=== PATIENT | male | born 1935 | race Caucasian/White ===

== ENCOUNTER 2019-05-08 13:44 | Inpatient (IN) ==
[2019-05-08 14:22] LABS: Basophils % 0.1 %; Eosinophils % 0.4 %; Hematocrit 41.9 % (37.5-50.1); Hemoglobin 12.7 g/dL (12.9-16.9); Immature Granulocytes % 0.6 % (0-4); Lymphocytes # 0.5 K/mcL (0.6-4.6); Lymphocytes % 5.4 %; Mean Corpuscular HGB Conc 30.3 g/dL (31.6-35.5); Mean Corpuscular Hemoglobin 29.6 pg (28.0-33.3); Mean Corpuscular Volume 97.7 fL (83.0-100.0); Mean Platelet Volume 8.4 fL (9.4-12.4); Monocytes # 0.5 K/mcL (0.0-1.3); Monocytes % 5.3 %; Neutrophils # 8.2 K/mcL (1.6-8.9); Platelet Count 252 K/mcL (140-400); Red Blood Count 4.29 M/mcL (4.19-5.50); Red Cell Distribution Width 16.2 % (11.5-14.5); Segmented Neutrophils % 88.2 %; White Blood Count 9.4 K/mcL (4.3-11.1)
[2019-05-08] MEDS ORDERED: Isovue-370 500 ML BOTTLE IVP ONE (14:28)
[2019-05-08 14:32] LABS: Prothrombin Time 10.9 Seconds (9.4-12.1)
[2019-05-08 14:35] LABS: Activated Partial Thrombo Time 31.8 Seconds (26.0-36.0)
[2019-05-08 14:48] LABS: Troponin I < 0.03 ng/mL (< 0.04)
[2019-05-08 14:53] LABS: ABG Base Excess 10 mEq/L (-2 to 3); ABG HCO3 38 mEq/L (21-27); ABG Oxygen Saturation 92 % (95-98); ABG PCO2 68 mmHg (35-45); ABG PH 7.35 pH Units (7.32-7.45); ABG PO2 68 mmHg (85-104); ABG TCO2 40 mEq/L (20-26)
[2019-05-08 15:01] LABS: Alanine Aminotransferase < 3 Units/L (7-52); Albumin 3.8 g/dL (3.5-5.7); Albumin/Globulin Ratio 1.7 (1.1-2.2); Alkaline Phosphatase 58 Units/L (34-104); Aspartate Amino Transferase 8 Units/L (13-39); BUN/Creatinine Ratio 25 (6-26); Bilirubin,Direct 0.1 mg/dL (0.0-0.2); Bilirubin,Indirect 0.4 mg/dL (0.0-1.0); Bilirubin,Total 0.5 mg/dL (0.3-1.0); Blood Urea Nitrogen 24 mg/dL (8-23); Calcium 8.6 mg/dL (8.6-10.3); Carbon Dioxide 33 mEq/L (23-29); Chloride 99 mEq/L (98-107); Globulin 2.3 g/dL (2.4-3.5); Glucose 221 mg/dL (70-105); Osmolality,Calculated 295 (280-300); Potassium 4.4 mEq/L (3.5-5.1); Sodium 137 mEq/L (136-145); Total Protein 6.1 g/dL (6.4-8.9); eGFR For African Americans > 60 (> 60); eGFR For Non-African Americans > 60 (> 60)
[2019-05-08] MEDS ORDERED: cefTRIAXone 1,000 MG in Water for inj. (sterile) 10 ML IVP ONE (15:54)
[2019-05-08] MEDS ORDERED: Furosemide 40 MG/4 ML VIAL IVP ONE (15:54)
[2019-05-08 16:27] LABS: Bilirubin,Urine Negative (Negative); Blood,Urine Negative (Negative); Clarity,Urine Clear (Clear); Color,Urine Yellow (Yellow); Glucose,Urine (UA) 250 mg/dL (Normal); Ketones,Urine Negative (Negative); Leukocyte Esterase,Urine Negative (Negative); Nitrite,Urine Negative (Negative); Protein,Urine Negative (Neg-Trace); Specific Gravity,Urine > 1.030 (1.010-1.025); Urobilinogen,Urine Normal (Normal)
[2019-05-08] MEDS ORDERED: Naloxone 0.4 MG/ML INJ IVP PRN (16:57)
[2019-05-08] MEDS ORDERED: Ondansetron ODT 4 MG TAB.RAPDIS SL PRN (17:02)
[2019-05-08] MEDS ORDERED: Acetaminophen 325 MG TABLET PO PRN (17:12)
[2019-05-08 17:33] LABS: Magnesium 2.1 mg/dL (1.6-2.6)
[2019-05-08] MEDS ORDERED: Albuterol 2.5 MG/3 ML NEBULIZER IH PRN (17:48)
[2019-05-08] MEDS ORDERED: Azithromycin 500 MG in 0.9 % Sodium Chloride 250 ML IVPB SCH (18:00)
[2019-05-08] MEDS ORDERED: Ondansetron ODT 4 MG TAB.RAPDIS PO PRN (18:13)
[2019-05-08] MEDS: *HR* Heparin 5,000 UNIT/ML VIAL SQ SCH (18:56)
[2019-05-08] MEDS: predniSONE 20 MG TABLET PO SCH (18:56)
[2019-05-08] MEDS: Ampicillin/Sulbactam 3,000 MG in 0.9 % Sodium Chloride Mini Bag 100 ML IVPB SCH (18:57)
[2019-05-08] MEDS: Ipratropium/Albuterol Neb 3 ML IH SCH (19:40)
[2019-05-08] MEDS ORDERED: Furosemide 40 MG/4 ML VIAL IVP SCH (21:00)
[2019-05-08] MEDS: Carbidopa/Levodopa 25/100 TABLET PO SCH (21:22)
[2019-05-09] MEDS: Ampicillin/Sulbactam 3,000 MG in 0.9 % Sodium Chloride Mini Bag 100 ML IVPB SCH ×4 (00:03→17:34)
[2019-05-09] MEDS: Ipratropium/Albuterol Neb 3 ML IH SCH ×6 (01:01→20:17)
[2019-05-09] MEDS: *HR* Heparin 5,000 UNIT/ML VIAL SQ SCH ×2 (06:39→17:34)
[2019-05-09 07:23] LABS: Hematocrit 38.6 % (37.5-50.1); Hemoglobin 12.1 g/dL (12.9-16.9); Mean Corpuscular HGB Conc 31.3 g/dL (31.6-35.5); Mean Corpuscular Volume 95.8 fL (83.0-100.0); Mean Platelet Volume 8.8 fL (9.4-12.4); Platelet Count 277 K/mcL (140-400); Red Blood Count 4.03 M/mcL (4.19-5.50); Red Cell Distribution Width 16.1 % (11.5-14.5); White Blood Count 8.2 K/mcL (4.3-11.1)
[2019-05-09 07:44] LABS: BUN/Creatinine Ratio 23 (6-26); Blood Urea Nitrogen 23 mg/dL (8-23); Calcium 8.5 mg/dL (8.6-10.3); Carbon Dioxide 39 mEq/L (23-29); Chloride 96 mEq/L (98-107); Glucose 166 mg/dL (70-105); Osmolality,Calculated 297 (280-300); Potassium 4.3 mEq/L (3.5-5.1); Sodium 140 mEq/L (136-145); eGFR For African Americans > 60 (> 60); eGFR For Non-African Americans > 60 (> 60)
[2019-05-09] MEDS ORDERED: cefTRIAXone 1,000 MG in Water for inj. (sterile) 10 ML IVP SCH (09:00)
[2019-05-09] MEDS ORDERED: (Fluticasone/Umeclidin/Vilanter [Trelegy Ellipta 100- IH SCH (09:00)
[2019-05-09] MEDS: Bumetanide 1 MG TABLET PO SCH (09:19)
[2019-05-09] MEDS: Carbidopa/Levodopa 25/100 TABLET PO SCH ×3 (09:20→21:56)
[2019-05-09] MEDS: predniSONE 20 MG TABLET PO SCH (09:20)
[2019-05-09] MEDS: Spironolactone 25 MG TABLET PO SCH (09:21)
[2019-05-09 15:59] LABS: Adenovirus Not Detected (Not Detect); Bordetella Pertussis Not Detected (Not Detect); Chlamydophila pneumoniae Not Detected (Not Detect); Coronavirus 229E Not Detected (Not Detect); Coronavirus HKU1 Not Detected (Not Detect); Coronavirus NL63 Not Detected (Not Detect); Coronavirus OC43 Not Detected (Not Detect); Human Metapneumovirus Not Detected (Not Detect); Human Rhinovirus/Enterovirus Not Detected (Not Detect); Influenza A Subtype 2009 H1 Not Detected (Not Detect); Influenza B Not Detected (Not Detect); Mycoplasma pneumoniae Not Detected (Not Detect); Parainfluenza Virus 1 Not Detected (Not Detect); Parainfluenza Virus 2 Not Detected (Not Detect); Parainfluenza Virus 3 Not Detected (Not Detect); Parainfluenza Virus 4 Not Detected (Not Detect); Respiratory Syncytial Virus Not Detected (Not Detect)
[2019-05-09] MEDS: Budesonide/Formoterol 160/4.5 1 PUFF INH IH SCH (20:17)
[2019-05-10] MEDS: Ipratropium/Albuterol Neb 3 ML IH SCH ×6 (00:07→20:22)
[2019-05-10] MEDS: Ampicillin/Sulbactam 3,000 MG in 0.9 % Sodium Chloride Mini Bag 100 ML IVPB SCH ×2 (00:34→05:46)
[2019-05-10] MEDS: *HR* Heparin 5,000 UNIT/ML VIAL SQ SCH ×2 (05:45→17:25)
[2019-05-10] MEDS: Budesonide/Formoterol 160/4.5 1 PUFF INH IH SCH ×2 (07:45→20:22)
[2019-05-10] MEDS: Bumetanide 1 MG TABLET PO SCH (07:53)
[2019-05-10] MEDS: Spironolactone 25 MG TABLET PO SCH (07:53)
[2019-05-10] MEDS: predniSONE 20 MG TABLET PO SCH (07:54)
[2019-05-10] MEDS: Carbidopa/Levodopa 25/100 TABLET PO SCH ×3 (07:54→21:25)
[2019-05-10 08:09] LABS: Hematocrit 36.9 % (37.5-50.1); Hemoglobin 11.4 g/dL (12.9-16.9); Mean Corpuscular HGB Conc 30.9 g/dL (31.6-35.5); Mean Corpuscular Hemoglobin 29.8 pg (28.0-33.3); Mean Corpuscular Volume 96.6 fL (83.0-100.0); Mean Platelet Volume 8.7 fL (9.4-12.4); Platelet Count 256 K/mcL (140-400); Red Blood Count 3.82 M/mcL (4.19-5.50); Red Cell Distribution Width 16.1 % (11.5-14.5); White Blood Count 8.3 K/mcL (4.3-11.1)
[2019-05-10] MEDS ORDERED: Furosemide 40 MG/4 ML VIAL IVP ONE ×2 (08:22→19:00)
[2019-05-10 08:30] LABS: BUN/Creatinine Ratio 24 (6-26); Blood Urea Nitrogen 27 mg/dL (8-23); Calcium 8.2 mg/dL (8.6-10.3); Carbon Dioxide 37 mEq/L (23-29); Chloride 100 mEq/L (98-107); Glucose 160 mg/dL (70-105); Osmolality,Calculated 305 (280-300); Potassium 4.2 mEq/L (3.5-5.1); Sodium 143 mEq/L (136-145); eGFR For African Americans > 60 (> 60); eGFR For Non-African Americans > 60 (> 60)
[2019-05-11] MEDS: Ipratropium/Albuterol Neb 3 ML IH SCH ×4 (00:06→11:53)
[2019-05-11] MEDS: *HR* Heparin 5,000 UNIT/ML VIAL SQ SCH (04:58)
[2019-05-11 05:08] LABS: Hematocrit 38.3 % (37.5-50.1); Hemoglobin 11.7 g/dL (12.9-16.9); Mean Corpuscular HGB Conc 30.5 g/dL (31.6-35.5); Mean Corpuscular Hemoglobin 29.7 pg (28.0-33.3); Mean Corpuscular Volume 97.2 fL (83.0-100.0); Mean Platelet Volume 8.5 fL (9.4-12.4); Platelet Count 266 K/mcL (140-400); Red Blood Count 3.94 M/mcL (4.19-5.50); Red Cell Distribution Width 16.1 % (11.5-14.5); White Blood Count 7.8 K/mcL (4.3-11.1)
[2019-05-11 05:33] LABS: BUN/Creatinine Ratio 26 (6-26); Blood Urea Nitrogen 28 mg/dL (8-23); Calcium 8.5 mg/dL (8.6-10.3); Carbon Dioxide 42 mEq/L (23-29); Chloride 96 mEq/L (98-107); Glucose 119 mg/dL (70-105); Osmolality,Calculated 303 (280-300); Potassium 4.3 mEq/L (3.5-5.1); Sodium 143 mEq/L (136-145); eGFR For African Americans > 60 (> 60); eGFR For Non-African Americans > 60 (> 60)
[2019-05-11] MEDS: Carbidopa/Levodopa 25/100 TABLET PO SCH (07:20)
[2019-05-11] MEDS: Spironolactone 25 MG TABLET PO SCH (07:20)
[2019-05-11] MEDS: predniSONE 20 MG TABLET PO SCH (07:20)
[2019-05-11] MEDS: Budesonide/Formoterol 160/4.5 1 PUFF INH IH SCH (07:29)
[2019-05-11] MEDS: Bumetanide 1 MG TABLET PO SCH (07:57)
[2019-05-11] MEDS ORDERED: Furosemide 40 MG TABLET PO SCH (08:15)
[2019-05-11 08:24] LABS: ABG Base Excess 14 mEq/L (-2 to 3); ABG HCO3 44 mEq/L (21-27); ABG Oxygen Saturation 91 % (95-98); ABG PCO2 78 mmHg (35-45); ABG PH 7.36 pH Units (7.32-7.45); ABG PO2 67 mmHg (85-104); ABG TCO2 46 mEq/L (20-26)
[2019-05-11 10:17] VITALS: BP 141/72
== END 2019-05-11 14:00 | DRG 177 ==
LOC: EMEROOARM 13:44 → 3ANU 13:44 → SUATTDRO 16:57 → 3ANU 17:58
PROVIDERS: ADMIT Family Medicine; ATTEND Family Medicine

== ENCOUNTER 2019-06-09 22:12 | Inpatient (IN) ==
[2019-06-09] MEDS ORDERED: 0.9 % Sodium Chloride 1,000 ML IVC ONE (22:39)
[2019-06-09 23:14] LABS: Basophils % 0.2 %; Eosinophils # 0.1 K/mcL (0.0-0.6); Eosinophils % 0.9 %; Hematocrit 35.7 % (37.5-50.1); Hemoglobin 10.9 g/dL (12.9-16.9); Immature Granulocytes % 0.4 % (0-4); Lymphocytes # 0.8 K/mcL (0.6-4.6); Lymphocytes % 13.9 %; Mean Corpuscular HGB Conc 30.5 g/dL (31.6-35.5); Mean Corpuscular Volume 98.3 fL (83.0-100.0); Mean Platelet Volume 8.4 fL (9.4-12.4); Monocytes # 0.5 K/mcL (0.0-1.3); Monocytes % 8.6 %; Neutrophils # 4.2 K/mcL (1.6-8.9); Platelet Count 231 K/mcL (140-400); Red Blood Count 3.63 M/mcL (4.19-5.50); Red Cell Distribution Width 15.6 % (11.5-14.5); White Blood Count 5.6 K/mcL (4.3-11.1)
[2019-06-09 23:23] LABS: Calcium 8.3 mg/dL (8.6-10.3); Potassium 4.3 mEq/L (3.5-5.1)
[2019-06-09] MEDS ORDERED: Ipratropium/Albuterol Neb 3 ML IH ONE (23:35)
[2019-06-10] MEDS ORDERED: predniSONE 20 MG TABLET PO ONE (00:33)
[2019-06-10] MEDS ORDERED: 0.9 % Sodium Chloride 500 ML IVC ONE (00:34)
[2019-06-10 00:58] LABS: Bilirubin,Urine Negative (Negative); Blood,Urine Negative (Negative); Clarity,Urine Clear (Clear); Color,Urine Yellow (Yellow); Glucose,Urine (UA) Normal (Normal); Ketones,Urine Negative (Negative); Leukocyte Esterase,Urine Negative (Negative); Nitrite,Urine Negative (Negative); PH,Urine 6.5 pH Units (5.0-8.0); Protein,Urine Negative (Neg-Trace); Specific Gravity,Urine 1.012 (1.010-1.025); Urobilinogen,Urine Normal (Normal)
[2019-06-10] MEDS ORDERED: Naloxone 0.4 MG/ML INJ IVP PRN (03:09)
[2019-06-10] MEDS ORDERED: Albuterol 2.5 MG/3 ML NEBULIZER IH PRN (03:13)
[2019-06-10] MEDS: Ipratropium/Albuterol Neb 3 ML IH SCH ×5 (03:40→21:54)
[2019-06-10 05:15] LABS: Hematocrit 35.3 % (37.5-50.1); Mean Corpuscular HGB Conc 31.2 g/dL (31.6-35.5); Mean Corpuscular Hemoglobin 30.8 pg (28.0-33.3); Mean Corpuscular Volume 98.9 fL (83.0-100.0); Mean Platelet Volume 8.5 fL (9.4-12.4); Platelet Count 222 K/mcL (140-400); Red Blood Count 3.57 M/mcL (4.19-5.50); Red Cell Distribution Width 15.6 % (11.5-14.5)
[2019-06-10 05:38] LABS: Calcium 8.4 mg/dL (8.6-10.3); Phosphorous 3.5 mg/dL (2.7-4.5); Potassium 4.8 mEq/L (3.5-5.1)
[2019-06-10] MEDS: predniSONE 20 MG TABLET PO SCH (08:19)
[2019-06-10] MEDS: Azithromycin 500 MG in 0.9 % Sodium Chloride 250 ML IVPB SCH (11:27)
[2019-06-10] MEDS: Carbidopa/Levodopa 25/100 TABLET PO SCH ×2 (14:32→20:04)
[2019-06-10 14:40] LABS: ABG Base Excess 9 mEq/L (-2 to 3); ABG HCO3 37 mEq/L (21-27); ABG Oxygen Saturation 98 % (95-98); ABG PCO2 67 mmHg (35-45); ABG PH 7.36 pH Units (7.32-7.45); ABG PO2 111 mmHg (85-104); ABG TCO2 40 mEq/L (20-26)
[2019-06-10] MEDS ORDERED: Furosemide 40 MG TABLET PO SCH (17:00)
[2019-06-10] MEDS ORDERED: Furosemide 20 MG/2 ML VIAL IVP SCH (17:00)
[2019-06-10] MEDS ORDERED: Melatonin 3 MG TABLET PO PRN (17:49)
[2019-06-10] MEDS ORDERED: NON-FORMULARY MEDICATION 1 EACH EACH (Fluticasone/Umeclidin/Vilanter [Trelegy Ellipta 100- IH SCH (18:00)
[2019-06-10] MEDS: Budesonide/Formoterol 160/4.5 1 PUFF INH IH SCH (21:54)
[2019-06-11 03:27] LABS: Basophils % 0.1 %; Eosinophils % 0.6 %; Hematocrit 36.3 % (37.5-50.1); Immature Granulocytes % 0.6 % (0-4); Lymphocytes # 0.9 K/mcL (0.6-4.6); Mean Corpuscular HGB Conc 30.3 g/dL (31.6-35.5); Mean Corpuscular Hemoglobin 30.4 pg (28.0-33.3); Mean Corpuscular Volume 100.3 fL (83.0-100.0); Mean Platelet Volume 8.5 fL (9.4-12.4); Monocytes # 0.5 K/mcL (0.0-1.3); Monocytes % 7.2 %; Neutrophils # 5.7 K/mcL (1.6-8.9); Platelet Count 243 K/mcL (140-400); Red Blood Count 3.62 M/mcL (4.19-5.50); Red Cell Distribution Width 15.5 % (11.5-14.5); Segmented Neutrophils % 79.5 %; White Blood Count 7.2 K/mcL (4.3-11.1)
[2019-06-11 03:47] LABS: BUN/Creatinine Ratio 28 (6-26); Blood Urea Nitrogen 36 mg/dL (8-23); Calcium 8.8 mg/dL (8.6-10.3); Carbon Dioxide 39 mEq/L (23-29); Chloride 98 mEq/L (98-107); Glucose 116 mg/dL (70-105); Osmolality,Calculated 299 (280-300); Potassium 4.6 mEq/L (3.5-5.1); Sodium 140 mEq/L (136-145); eGFR For African Americans > 60 (> 60); eGFR For Non-African Americans 54 (> 60)
[2019-06-11] MEDS: Ipratropium/Albuterol Neb 3 ML IH SCH ×4 (03:57→21:09)
[2019-06-11] MEDS: Furosemide 20 MG/2 ML VIAL IVP SCH ×2 (07:51→18:24)
[2019-06-11] MEDS: Carbidopa/Levodopa 25/100 TABLET PO SCH ×3 (07:51→21:05)
[2019-06-11] MEDS: predniSONE 20 MG TABLET PO SCH (07:51)
[2019-06-11] MEDS ORDERED: lisinopriL 5 MG TABLET PO SCH (09:00)
[2019-06-11] MEDS: Budesonide/Formoterol 160/4.5 1 PUFF INH IH SCH ×2 (10:16→21:09)
[2019-06-11] MEDS: Tiotropium 18 MCG inhalation IH SCH (10:17)
[2019-06-11] MEDS: Azithromycin 500 MG in 0.9 % Sodium Chloride 250 ML IVPB SCH (10:33)
[2019-06-11] MEDS ORDERED: 0.9 % Sodium Chloride 250 ML IVC ONE ×2 (18:48→20:24)
[2019-06-12] MEDS: Ipratropium/Albuterol Neb 3 ML IH SCH ×2 (03:29→09:44)
[2019-06-12 05:45] LABS: Basophils % 0.1 %; Eosinophils # 0.1 K/mcL (0.0-0.6); Eosinophils % 1.1 %; Hematocrit 36.3 % (37.5-50.1); Immature Granulocytes % 0.7 % (0-4); Lymphocytes # 1.6 K/mcL (0.6-4.6); Lymphocytes % 20.9 %; Mean Corpuscular HGB Conc 30.3 g/dL (31.6-35.5); Mean Corpuscular Hemoglobin 30.4 pg (28.0-33.3); Mean Corpuscular Volume 100.3 fL (83.0-100.0); Mean Platelet Volume 8.5 fL (9.4-12.4); Monocytes # 0.5 K/mcL (0.0-1.3); Monocytes % 6.9 %; Neutrophils # 5.3 K/mcL (1.6-8.9); Platelet Count 233 K/mcL (140-400); Red Blood Count 3.62 M/mcL (4.19-5.50); Red Cell Distribution Width 15.9 % (11.5-14.5); Segmented Neutrophils % 70.3 %; White Blood Count 7.5 K/mcL (4.3-11.1)
[2019-06-12 06:07] LABS: Calcium 8.7 mg/dL (8.6-10.3); Potassium 4.6 mEq/L (3.5-5.1)
[2019-06-12] MEDS: predniSONE 20 MG TABLET PO SCH (08:53)
[2019-06-12] MEDS: Carbidopa/Levodopa 25/100 TABLET PO SCH (08:54)
[2019-06-12] MEDS: Budesonide/Formoterol 160/4.5 1 PUFF INH IH SCH (09:46)
[2019-06-12] MEDS: Tiotropium 18 MCG inhalation IH SCH (09:53)
[2019-06-12 10:15] VITALS: BP 105/36
[2019-06-12] MEDS ORDERED: Azithromycin 250 MG TABLET PO ONE (12:00)
[2019-06-12] MEDS: Azithromycin 500 MG in 0.9 % Sodium Chloride 250 ML IVPB SCH (12:25)
== END 2019-06-12 15:13 | disposition home or self-care (01) | DRG 190 ==
LOC: 3ANU 22:12 → EMEROOARM 22:12 → SUATTDRO 06-10 01:20 → 3ANU 06-10 02:18
PROVIDERS: ADMIT Family Medicine; ATTEND Internal Medicine

== ENCOUNTER 2019-06-27 07:03 | Inpatient (IN) ==
[2019-06-27] MEDS ORDERED: 0.9 % Sodium Chloride 1,000 ML IVC ONE (07:17)
[2019-06-27 07:49] LABS: Basophils % 0.3 %; Eosinophils # 0.1 K/mcL (0.0-0.6); Eosinophils % 1.4 %; Hematocrit 37.9 % (37.5-50.1); Hemoglobin 11.3 g/dL (12.9-16.9); Immature Granulocytes % 0.4 % (0-4); Lymphocytes # 0.9 K/mcL (0.6-4.6); Lymphocytes % 11.1 %; Mean Corpuscular HGB Conc 29.8 g/dL (31.6-35.5); Mean Corpuscular Hemoglobin 30.2 pg (28.0-33.3); Mean Corpuscular Volume 101.3 fL (83.0-100.0); Mean Platelet Volume 8.7 fL (9.4-12.4); Monocytes # 0.5 K/mcL (0.0-1.3); Monocytes % 7.1 %; Neutrophils # 6.1 K/mcL (1.6-8.9); Platelet Count 316 K/mcL (140-400); Red Blood Count 3.74 M/mcL (4.19-5.50); Red Cell Distribution Width 16.3 % (11.5-14.5); Segmented Neutrophils % 79.7 %; White Blood Count 7.6 K/mcL (4.3-11.1)
[2019-06-27 07:55] LABS: Prothrombin Time 11.3 Seconds (9.4-12.1)
[2019-06-27 07:57] LABS: Activated Partial Thrombo Time 34.4 Seconds (26.0-36.0)
[2019-06-27] MEDS ORDERED: Cefepime HCl 1,000 MG in 0.9 % Sodium Chloride Mini Bag 100 ML IVPB STA (08:21)
[2019-06-27] MEDS ORDERED: Azithromycin 500 MG in 0.9 % Sodium Chloride 250 ML IVPB ONE (08:21)
[2019-06-27 08:41] LABS: Bilirubin,Urine Negative (Negative); Blood,Urine Large (Negative); Clarity,Urine Turbid (Clear); Color,Urine Red (Yellow); Glucose,Urine (UA) Normal (Normal); Ketones,Urine Negative (Negative); Leukocyte Esterase,Urine Small (Negative); Nitrite,Urine Negative (Negative); Protein,Urine 100 mg/dL (Neg-Trace); Specific Gravity,Urine 1.015 (1.010-1.025); Urobilinogen,Urine Normal (Normal)
[2019-06-27 08:43] LABS: Bacteria,Urine None Seen per hpf (None-Few); RBC,Urine 50-100 per hpf (0-3); Squamous Epithelial Cell,Urine Many per lpf (None-Few)
[2019-06-27 08:51] LABS: Amphetamine Screen,Urine Negative ng/mL (Cutoff=1000); Barbiturate Screen,Urine Negative ng/mL (Cutoff=200); Benzodiazepines Screen,Urine Negative ng/mL (Cutoff=200); Cannabinoid Screen,Urine Negative ng/mL (Cutoff = 50); Cocaine Screen,Urine Negative ng/mL (Cutoff= 300); Opiate Screen,Urine Negative ng/mL (Cutoff=300); Phencyclidine Screen,Urine Negative ng/mL (Cutoff=25)
[2019-06-27 08:54] LABS: Alanine Aminotransferase < 3 Units/L (7-52); Albumin 3.8 g/dL (3.5-5.7); Albumin/Globulin Ratio 1.5 (1.1-2.2); Alkaline Phosphatase 52 Units/L (34-104); Aspartate Amino Transferase 10 Units/L (13-39); BUN/Creatinine Ratio 24 (6-26); Bilirubin,Direct 0.1 mg/dL (0.0-0.2); Bilirubin,Indirect 0.2 mg/dL (0.0-1.0); Bilirubin,Total 0.3 mg/dL (0.3-1.0); Blood Urea Nitrogen 40 mg/dL (8-23); C-Reactive Protein 40 mg/L (Less than 10); Calcium 8.9 mg/dL (8.6-10.3); Carbon Dioxide 36 mEq/L (23-29); Chloride 98 mEq/L (98-107); Ethanol < 10 mg/dL (Less than 10); Ferritin 53 ng/mL (20-250); Globulin 2.6 g/dL (2.4-3.5); Glucose 98 mg/dL (70-105); Magnesium 1.8 mg/dL (1.6-2.6); Osmolality,Calculated 302 (280-300); Potassium 4.8 mEq/L (3.5-5.1); Sodium 141 mEq/L (136-145); Thyroid Stimulating Hormone 2.003 mcIU/mL (0.340-5.600); Total Protein 6.4 g/dL (6.4-8.9); Troponin I < 0.03 ng/mL (< 0.04); eGFR For African Americans 48 (> 60); eGFR For Non-African Americans 39 (> 60)
[2019-06-27] MEDS ORDERED: Naloxone 0.4 MG/ML INJ IVP PRN (11:42)
[2019-06-27] MEDS ORDERED: 0.9 % Sodium Chloride 1,000 ML IVC SCH (12:15)
[2019-06-27] MEDS ORDERED: Ketoconazole 2% CRM 15 GM TUBE TP PRN (20:55)
[2019-06-27] MEDS ORDERED: Ondansetron ODT 4 MG TAB.RAPDIS PO PRN (20:55)
[2019-06-27] MEDS: Melatonin 3 MG TABLET PO SCH (21:34)
[2019-06-27] MEDS: Carbidopa/Levodopa 25/100 TABLET PO SCH (21:35)
[2019-06-27] MEDS ORDERED: Ipratropium/Albuterol Neb 3 ML IH ONE (23:38)
[2019-06-27] MEDS: Budesonide/Formoterol 80/4.5 1 PUFF INH IH SCH (23:39)
[2019-06-27] MEDS ORDERED: Ipratropium/Albuterol Neb 3 ML IH PRN (23:44)
[2019-06-28 00:36] LABS: Basophils % 0.1 %; Eosinophils # 0.2 K/mcL (0.0-0.6); Hematocrit 35.3 % (37.5-50.1); Hemoglobin 10.4 g/dL (12.9-16.9); Immature Granulocytes % 0.3 % (0-4); Lymphocytes # 0.8 K/mcL (0.6-4.6); Lymphocytes % 9.8 %; Mean Corpuscular HGB Conc 29.5 g/dL (31.6-35.5); Mean Corpuscular Hemoglobin 30.2 pg (28.0-33.3); Mean Corpuscular Volume 102.6 fL (83.0-100.0); Mean Platelet Volume 8.4 fL (9.4-12.4); Monocytes # 0.6 K/mcL (0.0-1.3); Monocytes % 7.4 %; Neutrophils # 6.3 K/mcL (1.6-8.9); Platelet Count 261 K/mcL (140-400); Red Blood Count 3.44 M/mcL (4.19-5.50); Red Cell Distribution Width 16.3 % (11.5-14.5); Segmented Neutrophils % 80.4 %; White Blood Count 7.9 K/mcL (4.3-11.1)
[2019-06-28 00:50] LABS: VBG HCO3 37 mEq/L (21-27); VBG PCO2 82 mmHg (41-51); VBG PH 7.26 pH Units (7.32-7.42); VBG PO2 49 mmHg (25-50)
[2019-06-28 01:00] LABS: BUN/Creatinine Ratio 22 (6-26); Blood Urea Nitrogen 26 mg/dL (8-23); Calcium 8.7 mg/dL (8.6-10.3); Carbon Dioxide 35 mEq/L (23-29); Chloride 104 mEq/L (98-107); Glucose 101 mg/dL (70-105); Osmolality,Calculated 299 (280-300); Potassium 4.9 mEq/L (3.5-5.1); Sodium 142 mEq/L (136-145); eGFR For African Americans > 60 (> 60); eGFR For Non-African Americans > 60 (> 60)
[2019-06-28] MEDS ORDERED: *HR* LORazepam 2 MG/ML VIAL IVP ONE ×4 (02:21→23:24)
[2019-06-28] MEDS ORDERED: Aminoglycoside Consult 1 EACH MC ONE (08:27)
[2019-06-28] MEDS ORDERED: 0.9 % Sodium Chloride 500 ML IVC ONE (08:47)
[2019-06-28] MEDS ORDERED: 0.9 % Sodium Chloride 1,000 ML ONE (08:49)
[2019-06-28] MEDS ORDERED: levoFLOXacin 500 MG TABLET PO SCH (09:00)
[2019-06-28] MEDS: Budesonide/Formoterol 80/4.5 1 PUFF INH IH SCH ×2 (09:42→20:16)
[2019-06-28] MEDS: Tiotropium 18 MCG inhalation IH SCH (09:43)
[2019-06-28 09:51] LABS: ABG Base Excess 7 mEq/L (-2 to 3); ABG HCO3 36 mEq/L (21-27); ABG Oxygen Saturation 94 % (95-98); ABG PCO2 76 mmHg (35-45); ABG PH 7.28 pH Units (7.32-7.45); ABG PO2 83 mmHg (85-104); ABG TCO2 38 mEq/L (20-26); Blood Gas Modality NIV
[2019-06-28] MEDS ORDERED: Budesonide/Formoterol 80/4.5 1 PUFF INH IH SCH (10:00)
[2019-06-28] MEDS: MethylPREDNISolone 40 MG/ML VIAL IVP SCH ×3 (10:14→23:19)
[2019-06-28] MEDS: Piperacillin/Tazobactam 3.375 GM in 0.9 % Sodium Chloride Mini Bag 100 ML IVPB SCH ×3 (10:14→23:19)
[2019-06-28] MEDS ORDERED: 0.9 % Sodium Chloride 1,000 ML IVC ONE (10:27)
[2019-06-28] MEDS: Furosemide 40 MG TABLET PO SCH (11:34)
[2019-06-28] MEDS: Ipratropium/Albuterol Neb 3 ML IH SCH ×5 (11:34→23:50)
[2019-06-28] MEDS: WHEAT DEXTRIN PO SCH (11:35)
[2019-06-28] MEDS: polyethylene glycoL 3350 17 GM POWD.PACK PO SCH (11:35)
[2019-06-28] MEDS: Carbidopa/Levodopa 25/100 TABLET PO SCH ×3 (11:35→20:34)
[2019-06-28] MEDS: lisinopriL 5 MG TABLET PO SCH (11:36)
[2019-06-28 11:47] LABS: Adenovirus Not Detected (Not Detect); Bordetella Pertussis Not Detected (Not Detect); Chlamydophila pneumoniae Not Detected (Not Detect); Coronavirus 229E Not Detected (Not Detect); Coronavirus HKU1 Not Detected (Not Detect); Coronavirus NL63 Not Detected (Not Detect); Coronavirus OC43 Not Detected (Not Detect); Human Metapneumovirus Not Detected (Not Detect); Human Rhinovirus/Enterovirus Not Detected (Not Detect); Influenza A Subtype 2009 H1 Not Detected (Not Detect); Influenza B Not Detected (Not Detect); Mycoplasma pneumoniae Not Detected (Not Detect); Parainfluenza Virus 1 Not Detected (Not Detect); Parainfluenza Virus 2 Not Detected (Not Detect); Parainfluenza Virus 3 Not Detected (Not Detect); Parainfluenza Virus 4 Not Detected (Not Detect); Respiratory Syncytial Virus Not Detected (Not Detect)
[2019-06-28 15:13] LABS: ABG Base Excess 7 mEq/L (-2 to 3); ABG HCO3 36 mEq/L (21-27); ABG Oxygen Saturation 97 % (95-98); ABG PCO2 75 mmHg (35-45); ABG PH 7.29 pH Units (7.32-7.45); ABG PO2 101 mmHg (85-104); ABG TCO2 38 mEq/L (20-26); Blood Gas Pressure Support 16 cm H2O
[2019-06-28] MEDS: *HR* Heparin 5,000 UNIT/ML VIAL SQ SCH (16:44)
[2019-06-28] MEDS ORDERED: *HR* LORazepam 1 MG TABLET PO ONE (17:53)
[2019-06-28 20:16] LABS: ABG Base Excess 8 mEq/L (-2 to 3); ABG HCO3 35 mEq/L (21-27); ABG Oxygen Saturation 87 % (95-98); ABG PCO2 63 mmHg (35-45); ABG PH 7.35 pH Units (7.32-7.45); ABG PO2 57 mmHg (85-104); ABG TCO2 37 mEq/L (20-26); Blood Gas Modality BiLevel; Blood Gas Pressure Support 11 cm H2O
[2019-06-28] MEDS: Melatonin 3 MG TABLET PO SCH (20:34)
[2019-06-28] MEDS ORDERED: *HR* LORazepam 2 MG/ML VIAL IM STA (23:45)
[2019-06-29 01:05] LABS: Basophils % 0.1 %; Hematocrit 36.9 % (37.5-50.1); Hemoglobin 11.1 g/dL (12.9-16.9); Immature Granulocytes % 0.4 % (0-4); Lymphocytes # 0.3 K/mcL (0.6-4.6); Lymphocytes % 3.1 %; Mean Corpuscular HGB Conc 30.1 g/dL (31.6-35.5); Mean Corpuscular Hemoglobin 30.7 pg (28.0-33.3); Mean Corpuscular Volume 101.9 fL (83.0-100.0); Mean Platelet Volume 8.6 fL (9.4-12.4); Monocytes % 0.4 %; Neutrophils # 9.1 K/mcL (1.6-8.9); Platelet Count 289 K/mcL (140-400); Red Blood Count 3.62 M/mcL (4.19-5.50); Red Cell Distribution Width 15.9 % (11.5-14.5); White Blood Count 9.5 K/mcL (4.3-11.1)
[2019-06-29 01:25] LABS: BUN/Creatinine Ratio 20 (6-26); Blood Urea Nitrogen 20 mg/dL (8-23); Carbon Dioxide 35 mEq/L (23-29); Chloride 104 mEq/L (98-107); Glucose 150 mg/dL (70-105); Magnesium 1.7 mg/dL (1.6-2.6); Osmolality,Calculated 303 (280-300); Sodium 144 mEq/L (136-145); eGFR For African Americans > 60 (> 60); eGFR For Non-African Americans > 60 (> 60)
[2019-06-29] MEDS: Ipratropium/Albuterol Neb 3 ML IH SCH ×5 (04:09→21:36)
[2019-06-29 04:32] LABS: ABG Base Excess 9 mEq/L (-2 to 3); ABG HCO3 37 mEq/L (21-27); ABG Oxygen Saturation 91 % (95-98); ABG PCO2 69 mmHg (35-45); ABG PH 7.34 pH Units (7.32-7.45); ABG PO2 66 mmHg (85-104); ABG TCO2 39 mEq/L (20-26); Blood Gas Pressure Support 11 cm H2O
[2019-06-29] MEDS: *HR* Heparin 5,000 UNIT/ML VIAL SQ SCH ×2 (05:18→16:31)
[2019-06-29] MEDS: Tiotropium 18 MCG inhalation IH SCH (07:50)
[2019-06-29] MEDS: Carbidopa/Levodopa 25/100 TABLET PO SCH ×3 (08:29→21:03)
[2019-06-29] MEDS: MethylPREDNISolone 40 MG/ML VIAL IVP SCH ×2 (08:30→16:30)
[2019-06-29] MEDS: lisinopriL 5 MG TABLET PO SCH (08:30)
[2019-06-29] MEDS: Piperacillin/Tazobactam 3.375 GM in 0.9 % Sodium Chloride Mini Bag 100 ML IVPB SCH ×2 (08:30→16:31)
[2019-06-29] MEDS: polyethylene glycoL 3350 17 GM POWD.PACK PO SCH (08:57)
[2019-06-29] MEDS: WHEAT DEXTRIN PO SCH (08:57)
[2019-06-29] MEDS: Budesonide/Formoterol 80/4.5 1 PUFF INH IH SCH ×2 (10:38→21:29)
[2019-06-29] MEDS ORDERED: Morphine Sulfate Oral CONC 10 MG/0.5 ML ORAL.SYG SL PRN (14:56)
[2019-06-29] MEDS ORDERED: Haloperidol Oral Conc 10 MG/5 ML UDC PO PRN (14:56)
[2019-06-29] MEDS: Melatonin 3 MG TABLET PO SCH (21:03)
[2019-06-30] MEDS: Piperacillin/Tazobactam 3.375 GM in 0.9 % Sodium Chloride Mini Bag 100 ML IVPB SCH ×3 (01:44→15:00)
[2019-06-30] MEDS: MethylPREDNISolone 40 MG/ML VIAL IVP SCH ×2 (01:44→07:55)
[2019-06-30] MEDS ORDERED: Haloperidol Lactate 5 MG/ML VIAL IVP ONE (02:18)
[2019-06-30] MEDS: *HR* Heparin 5,000 UNIT/ML VIAL SQ SCH ×2 (04:19→17:22)
[2019-06-30] MEDS: lisinopriL 5 MG TABLET PO SCH (07:53)
[2019-06-30] MEDS: Carbidopa/Levodopa 25/100 TABLET PO SCH ×3 (07:54→19:55)
[2019-06-30] MEDS: Psyllium 1 PACKET POWD.PACK PO SCH (07:55)
[2019-06-30] MEDS: polyethylene glycoL 3350 17 GM POWD.PACK PO SCH (07:55)
[2019-06-30] MEDS: Tiotropium 18 MCG inhalation IH SCH (08:06)
[2019-06-30] MEDS: Budesonide/Formoterol 80/4.5 1 PUFF INH IH SCH ×2 (08:07→20:02)
[2019-06-30] MEDS: Melatonin 3 MG TABLET PO SCH (19:54)
[2019-07-01] MEDS: Piperacillin/Tazobactam 3.375 GM in 0.9 % Sodium Chloride Mini Bag 100 ML IVPB SCH ×2 (00:14→08:11)
[2019-07-01] MEDS: *HR* Heparin 5,000 UNIT/ML VIAL SQ SCH ×2 (04:57→15:49)
[2019-07-01] MEDS: Psyllium 1 PACKET POWD.PACK PO SCH (08:12)
[2019-07-01] MEDS: lisinopriL 5 MG TABLET PO SCH (08:12)
[2019-07-01] MEDS: polyethylene glycoL 3350 17 GM POWD.PACK PO SCH (08:12)
[2019-07-01] MEDS: Carbidopa/Levodopa 25/100 TABLET PO SCH ×3 (08:12→20:19)
[2019-07-01] MEDS: predniSONE 20 MG TABLET PO SCH (08:12)
[2019-07-01] MEDS: Tiotropium 18 MCG inhalation IH SCH (11:56)
[2019-07-01] MEDS: Budesonide/Formoterol 80/4.5 1 PUFF INH IH SCH ×2 (12:03→20:15)
[2019-07-01 15:28] LABS: Hematocrit 34.7 % (37.5-50.1); Hemoglobin 10.6 g/dL (12.9-16.9); Immature Granulocytes % 0.5 % (0-4); Lymphocytes # 0.2 K/mcL (0.6-4.6); Lymphocytes % 3.1 %; Mean Corpuscular HGB Conc 30.5 g/dL (31.6-35.5); Mean Corpuscular Hemoglobin 30.3 pg (28.0-33.3); Mean Corpuscular Volume 99.1 fL (83.0-100.0); Mean Platelet Volume 8.3 fL (9.4-12.4); Monocytes # 0.1 K/mcL (0.0-1.3); Monocytes % 1.9 %; Platelet Count 262 K/mcL (140-400); Red Cell Distribution Width 16.2 % (11.5-14.5); Segmented Neutrophils % 94.5 %; White Blood Count 7.4 K/mcL (4.3-11.1)
[2019-07-01 15:48] LABS: BUN/Creatinine Ratio 25 (6-26); Blood Urea Nitrogen 27 mg/dL (8-23); Calcium 8.5 mg/dL (8.6-10.3); Carbon Dioxide 35 mEq/L (23-29); Chloride 98 mEq/L (98-107); Glucose 250 mg/dL (70-105); Osmolality,Calculated 300 (280-300); Potassium 4.7 mEq/L (3.5-5.1); Sodium 138 mEq/L (136-145); eGFR For African Americans > 60 (> 60); eGFR For Non-African Americans > 60 (> 60)
[2019-07-01] MEDS: Furosemide 40 MG TABLET PO SCH (15:49)
[2019-07-01] MEDS: Melatonin 3 MG TABLET PO SCH (20:19)
[2019-07-02] MEDS: *HR* Heparin 5,000 UNIT/ML VIAL SQ SCH ×2 (06:39→17:42)
[2019-07-02] MEDS: Tiotropium 18 MCG inhalation IH SCH (07:33)
[2019-07-02] MEDS: Budesonide/Formoterol 80/4.5 1 PUFF INH IH SCH ×2 (07:35→19:58)
[2019-07-02] MEDS: predniSONE 20 MG TABLET PO SCH (10:28)
[2019-07-02] MEDS: Carbidopa/Levodopa 25/100 TABLET PO SCH ×3 (10:29→20:40)
[2019-07-02] MEDS: lisinopriL 5 MG TABLET PO SCH (10:29)
[2019-07-02] MEDS: Psyllium 1 PACKET POWD.PACK PO SCH (10:29)
[2019-07-02] MEDS: Furosemide 40 MG TABLET PO SCH ×2 (10:29→17:42)
[2019-07-02] MEDS: polyethylene glycoL 3350 17 GM POWD.PACK PO SCH (10:29)
[2019-07-02] MEDS: Melatonin 3 MG TABLET PO SCH (20:40)
[2019-07-03] MEDS: *HR* Heparin 5,000 UNIT/ML VIAL SQ SCH ×2 (05:34→17:08)
[2019-07-03] MEDS: Tiotropium 18 MCG inhalation IH SCH (07:51)
[2019-07-03] MEDS: Budesonide/Formoterol 80/4.5 1 PUFF INH IH SCH ×2 (07:51→19:20)
[2019-07-03] MEDS: Psyllium 1 PACKET POWD.PACK PO SCH (08:33)
[2019-07-03] MEDS: polyethylene glycoL 3350 17 GM POWD.PACK PO SCH (08:34)
[2019-07-03] MEDS: lisinopriL 5 MG TABLET PO SCH (08:34)
[2019-07-03] MEDS: Carbidopa/Levodopa 25/100 TABLET PO SCH ×3 (08:34→21:27)
[2019-07-03] MEDS: Spironolactone 25 MG TABLET PO SCH (08:34)
[2019-07-03] MEDS: predniSONE 20 MG TABLET PO SCH (08:34)
[2019-07-03] MEDS: Furosemide 40 MG TABLET PO SCH ×2 (08:34→17:08)
[2019-07-03] MEDS: Melatonin 3 MG TABLET PO SCH (21:26)
[2019-07-04] MEDS: *HR* Heparin 5,000 UNIT/ML VIAL SQ SCH (05:54)
[2019-07-04] MEDS: Tiotropium 18 MCG inhalation IH SCH (07:40)
[2019-07-04] MEDS: Budesonide/Formoterol 80/4.5 1 PUFF INH IH SCH (07:40)
[2019-07-04] MEDS: Carbidopa/Levodopa 25/100 TABLET PO SCH (09:41)
[2019-07-04] MEDS: Furosemide 40 MG TABLET PO SCH (09:41)
[2019-07-04] MEDS: lisinopriL 5 MG TABLET PO SCH (09:41)
[2019-07-04] MEDS: Spironolactone 25 MG TABLET PO SCH (09:41)
[2019-07-04] MEDS: predniSONE 20 MG TABLET PO SCH (09:42)
[2019-07-04] MEDS: Psyllium 1 PACKET POWD.PACK PO SCH (09:47)
[2019-07-04] MEDS: polyethylene glycoL 3350 17 GM POWD.PACK PO SCH (09:47)
[2019-07-04 10:56] VITALS: BP 92/54
== END 2019-07-04 14:30 | disposition hospice, inpatient (51) | DRG 177 ==
LOC: EMEROOARM 07:03 → 3BNU 07:03 → SUATTDRO 11:41 → 3BNU 12:06 → SUATTDRO 06-28 11:12 → 2NNU 06-29 10:09 → 2ANU 07-03 15:12
PROVIDERS: ADMIT Internal Medicine; ATTEND Internal Medicine